=== PATIENT | male | born 1990 | race Caucasian/White ===

== ENCOUNTER 2017-03-22 09:48 | Emergency (ER) | payer SELFPAY ==
[~2017-03-22] VITALS: Ht 172.7 cm; Wt 64.0 kg
[~2017-03-22 09:48] MED LIST: CLEOCIN150 MG PO; FLEXERIL OR; LORTAB 5 OR; LORTAB 7.5 OR; NAPROSYN500 MG OR; NAPROSYN500 MG PO; NO HOME MEDS; NO MEDS; ULTRAM50 MG OR; ZOFRAN ODT4 MG OR
[2017-03-22] MEDS ORDERED: NAPROSYN500 MG PO (10:55)
[2017-03-22 11:00] VITALS: BP 121/74
== END 2017-03-22 11:00 | disposition home or self-care (01) | DRG 605 ==
LOC: ED 09:48
DX: S60.221A Contusion of right hand, initial encounter (principal); M25.441 Effusion, right hand; W22.8XXA Striking against or struck by other objects, initial encounter; Y92.89 Other specified places as the place of occurrence of the external cause

== ENCOUNTER 2017-05-19 19:18 | Emergency (ER) | payer SELFPAY ==
[~2017-05-19] VITALS: Ht 172.7 cm; Wt 70.0 kg
[2017-05-19 20:29] LABS: HEMATOCRIT 39.1 % (39.0-50.0); HEMOGLOBIN 13.2 g/dl (14.0-18.0); IMMATURE GRANULOCYTES 0.2 % (0.0-1.0); MEAN CELL VOLUME 91.1 fL CALC (80.0-100.0); MEAN CORPUSCULAR HGB 30.8 pG CALC (26.0-32.0); MEAN CORPUSCULAR HGB CONC 33.8 g/L CALC (32.0-36.0); NEUT# 3.46 thou/uL (1.82-7.42); RED BLOOD COUNT 4.29 mill/uL (4.70-6.10); RED CELL DISTRI WIDTH 12.3 % (11.5-15.5)
[2017-05-19 20:37] LABS: ALBUMIN 4.7 g/dL (3.2-5.0); ALKALINE PHOSPHATASE 56 u/l (38-126); ANION GAP 17 (6-22 (CALC)); BILIRUBIN, TOTAL 0.6 mg/dL (0.0-1.4); BUN 17 mg/dL (9-20); BUN/CREATININE RATIO 16 (12-20 (CALC)); CALCIUM 9.6 mg/dL (8.4-10.2); CARBON DIOXIDE 23 mmol/l (22-30); CHLORIDE 108 mmol/l (95-108); CREATININE 1.1 mg/dL (0.7-1.3); GFR > 60 ML/MIN (>=60 (CALC)); GFR FOR AFR.AMER. > 60 ML/MIN (>=60 (CALC)); GLUCOSE 81 mg/dL (75-110); POTASSIUM 4.1 mmol/l (3.5-5.1); SGOT/AST 22 u/l (17-59); SGPT/ALT 34 u/l (21-72); SODIUM 143 mmol/l (137-146); TOTAL PROTEIN 7.4 g/dL (6.3-8.2)
[2017-05-19 23:28] VITALS: BP 133/89
== END 2017-05-19 23:28 | DRG 914 ==
LOC: ED 19:18
PROVIDERS: Emergency Medicine
DX: S68.127A Partial traumatic metacarpophalangeal amputation of left little finger, initial encounter (principal); F17.210 Nicotine dependence, cigarettes, uncomplicated; W31.89XA Contact with other specified machinery, initial encounter; Y93.89 Activity, other specified; Y92.009 Unspecified place in unspecified non-institutional (private) residence as the place of occurrence of the external cause

== ENCOUNTER 2019-01-19 03:46 | Emergency (ER) | payer SELFPAY ==
[~2019-01-19] VITALS: Ht 172.7 cm; Wt 68.0 kg
[2019-01-19 04:29] LABS: IMMATURE GRANULOCYTES 0.2 % (0.0-5.0); MEAN CELL VOLUME 95.6 fL CALC (80.0-100.0); MEAN CORPUSCULAR HGB 31.8 pG CALC (26.0-32.0); MEAN CORPUSCULAR HGB CONC 33.3 g/L CALC (32.0-36.0); NEUT# 2.61 thou/uL (1.82-7.42); RED BLOOD COUNT 4.72 mill/uL (4.70-6.10); RED CELL DISTRI WIDTH 12.4 % (11.5-15.5)
[2019-01-19 04:31] LABS: ALBUMIN 5.1 g/dL (3.2-5.0); ALKALINE PHOSPHATASE 70 u/l (38-126); BILIRUBIN, TOTAL 0.7 mg/dL (0.0-1.4); BUN 11 mg/dL (9-20); BUN/CREATININE RATIO 14 (12-20 (CALC)); CHLORIDE 111 mmol/l (95-108); CREATININE 0.8 mg/dL (0.7-1.3); ETHYL ALCOHOL 191 mg/dl (0-30); GFR > 60 ML/MIN (>=60 (CALC)); GFR FOR AFR.AMER. > 60 ML/MIN (>=60 (CALC)); POTASSIUM 3.8 mmol/l (3.5-5.1); SODIUM 142 mmol/l (137-146); TOTAL PROTEIN 8.2 g/dL (6.3-8.2)
[2019-01-19 04:33] LABS: HEMATOCRIT 45.1 % (39.0-50.0)
[2019-01-19 04:38] LABS: ANION GAP 17 (6-22 (CALC)); CARBON DIOXIDE 18 mmol/l (22-30); SGOT/AST 104 u/l (17-59)
[2019-01-19 04:43] LABS: MYOGLOBIN 36 ng/mL (0 - 121)
[2019-01-19 09:59] VITALS: BP 98/49
== END 2019-01-19 10:01 | disposition left against medical advice (07) | DRG 894 ==
LOC: ED 03:46
PROVIDERS: Emergency Medicine
DX: F11.10 Opioid abuse, uncomplicated (principal); F10.10 Alcohol abuse, uncomplicated; F17.210 Nicotine dependence, cigarettes, uncomplicated; Z91.19 Patient's noncompliance with other medical treatment and regimen

== ENCOUNTER 2019-05-22 07:48 | Emergency (ER) | payer BC ==
[~2019-05-22] VITALS: Ht 172.7 cm; Wt 68.2 kg
[2019-05-22 09:19] VITALS: BP 123/81
== END 2019-05-22 09:19 | disposition home or self-care (01) | DRG 93 ==
LOC: ED 07:48
DX: R20.2 Paresthesia of skin (principal); F17.200 Nicotine dependence, unspecified, uncomplicated

== ENCOUNTER 2020-06-03 15:03 | Emergency (ER) | payer SELFPAY ==
[~2020-06-03] VITALS: Ht 172.7 cm; Wt 76.0 kg
[2020-06-03 16:06] LABS: HEMATOCRIT 42.4 % (39.0-50.0); HEMOGLOBIN 13.3 g/dl (14.0-18.0); IMMATURE GRANULOCYTES 0.3 % (0.0-5.0); MEAN CELL VOLUME 96.4 fL CALC (80.0-100.0); MEAN CORPUSCULAR HGB 30.2 pG CALC (26.0-32.0); MEAN CORPUSCULAR HGB CONC 31.4 g/dL CAL (32.0-36.0); NEUT# 7.16 thou/uL (1.82-7.42); RED BLOOD COUNT 4.4 mill/uL (4.70-6.10); RED CELL DISTRI WIDTH 12.6 % (11.5-15.5)
[2020-06-03 16:19] LABS: ANION GAP 16 (6-22 (CALC)); BUN 16 mg/dL (9-20); BUN/CREATININE RATIO 22 (12-20 (CALC)); CARBON DIOXIDE 21 mmol/l (22-30); CHLORIDE 104 mmol/l (95-108); CREATININE 0.7 mg/dL (0.7-1.3); GFR > 60 ML/MIN (>=60 (CALC)); GFR FOR AFR.AMER. > 60 ML/MIN (>=60 (CALC)); POTASSIUM 4.5 mmol/l (3.5-5.1); SODIUM 137 mmol/l (137-146)
[2020-06-03] MEDS ORDERED: KEFLEX500 M1 PO (17:11)
[2020-06-03] MEDS ORDERED: BACTRIM DS1 TAB PO (17:11)
[2020-06-03 19:18] VITALS: BP 109/76
--- NOTE | 2020-06-06 08:23 | NUR ---
prelim blood cx shows gram positive cocci in 1 bottle, all that was drawn. results called to dr graff, called pt, went to voicemail but mailbox was full. will try again this morning
--- NOTE | 2020-06-06 09:33 | NUR ---
CALLED PT MOTHER KELLE, REPORTS PT IS AT [facility]. CALLED [facility], SPOKE WITH NURSE RYAN ON , FAXED RESULTS TO [phone]
== END 2020-06-03 19:05 | disposition left against medical advice (07) | DRG 603 ==
LOC: ED 15:03
PROVIDERS: Student in an Organized Health Care Education/Training Program
DX: L03.113 Cellulitis of right upper limb (principal); L02.413 Cutaneous abscess of right upper limb; F11.10 Opioid abuse, uncomplicated; F17.200 Nicotine dependence, unspecified, uncomplicated; Z91.19 Patient's noncompliance with other medical treatment and regimen